=== PATIENT | female | born 1995 | race Caucasian/White ===

== ENCOUNTER 2020-11-21 08:41 | Emergency (ER) | payer OTHER ==
[~2020-11-21] VITALS: Ht 160 cm; Wt 63.5 kg
[2020-11-21] MEDS ORDERED: ORPHENADRINE C100 MG PO (10:35)
[2020-11-21] MEDS ORDERED: SKELAGESIC PO (10:35)
== END 2020-11-21 12:46 | disposition home or self-care (01) ==
LOC: ER 08:41
DX: S93.492A Sprain of other ligament of left ankle, initial encounter (principal); X50.0XXA Overexertion from strenuous movement or load, initial encounter; Y93.89 Activity, other specified; Y92.138 Other place on military base as the place of occurrence of the external cause; Y99.8 Other external cause status